=== PATIENT | female | born 1990 | race Caucasian/White ===

== ENCOUNTER 2022-09-17 18:44 | Emergency (ER) | payer MEDICAID ==
[2022-09-17] MEDS ORDERED: Sodium Chloride 0.9% 1,000 ML IV ONE ×2 (19:17→20:24)
[2022-09-17 19:19] LABS: BILIRUBIN,URINE NEGATIVE (NEGATIVE); COLOR,URINE YELLOW; GLUCOSE,URINE NEGATIVE (NEGATIVE); KETONES,URINE NEGATIVE (NEGATIVE); LEUKOCYTE ESTERASE,URINE NEGATIVE (NEGATIVE); NITRITE,URINE POSITIVE (NEGATIVE); OCCULT BLOOD,URINE TRACE-INTACT (NEGATIVE); PROTEIN,URINE NEGATIVE (NEGATIVE); UROBILINOGEN,URINE 0.2 EU/dL (<2.0)
[2022-09-17 19:35] LABS: BASOPHILS PERCENT AUTO 0.5 % (0.0-1.5); EOSINOPHILS PERCENT AUTO 0.7 % (0.0-7.0); HEMATOCRIT 46.9 % (36.0-46.0); HEMOGLOBIN 16.7 g/dL (12.0-16.0); LYMPHOCYTES ABSOLUTE AUTO 1.2 K/uL (0.6-2.4); LYMPHOCYTES PERCENT AUTO 29.2 % (16.0-40.0); MEAN CORPUSCULAR HEMOGLOBIN 35.4 pg (27.0-32.0); MEAN CORPUSCULAR HGB CONC 35.6 g/dL (31.0-37.0); MEAN CORPUSCULAR VOLUME 99.4 fL (80.0-98.0); MONOCYTES ABSOLUTE AUTO 0.4 K/uL (0.0-0.8); MONOCYTES PERCENT AUTO 10.3 % (0.0-15.0); NEUTROPHILS ABSOLUTE AUTO 2.4 K/uL (1.4-5.7); NEUTROPHILS PERCENT AUTO 59.3 % (48.0-80.0); NRBC ABSOLUTE 0 K/uL; PLATELET COUNT,PLT 106 K/uL (150-400); RED BLOOD CELL COUNT 4.72 M/uL (4.30-5.90); WHITE BLOOD CELL COUNT,WBC 4.08 K/uL (4.0-11.0)
[2022-09-17 19:58] LABS: APPEARANCE,URINE HAZY
[2022-09-17 19:59] LABS: RBC,URINE 0-2 (0-2/HPF)
[2022-09-17 20:00] LABS: BACTERIA,URINE 2+ (NEGATIVE); EPITHELIAL CELLS,URINE FEW (NONE-FEW); MUCUS,URINE LIGHT (NONE-MOD); WBC,URINE 0-2 (0-5/HPF)
[2022-09-17] MEDS ORDERED: Ciprofloxacin 500 MG Tab PO ONE (20:05)
[2022-09-17 20:16] LABS: A/G RATIO 1.2 (0.9-1.6); ALBUMIN 4.3 g/dL (3.4-5.0); BILIRUBIN TOTAL 1.7 mg/dL (0.2-1.0); CALCIUM 9.5 mg/dL (8.5-10.1); CARBON DIOXIDE,CO2 25.1 mmol/L (21.0-32.0); CREATININE 0.5 mg/dL (0.6-1.0); EST CRCL DRUG DOSING (CG) 138.19 mL/min; POTASSIUM,K 3.1 mmol/L (3.5-5.1); PROTEIN TOTAL,TP 7.9 g/dL (6.4-8.2)
[2022-09-17 20:19] LABS: LACTIC ACID 2.2 mmol/L (0.4-2.0)
[2022-09-17] MEDS ORDERED: cefTRIAXone 1 GM in Sodium Chloride 0.9% 50 ML IV ONE (20:24)
[2022-09-17] MEDS ORDERED: Potassium Chloride 20 MEQ Tab.ER PO ONE (20:26)
== END 2022-09-17 22:45 | disposition home or self-care (01) ==
LOC: MW.ED 18:44
DX: E86.0 Dehydration (principal); N39.0 Urinary tract infection, site not specified; F10.10 Alcohol abuse, uncomplicated; R74.01 Elevation of levels of liver transaminase levels; Z88.0 Allergy status to penicillin; Z72.0 Tobacco use
CPT/HCPCS: 36415; 80053; 81001; 83605; 84443; 85025; 87086; 87088; 87186; 93005; 96361; 96365; 99285; A9270; J0696; J3490; J7030; 93010; 99284

== ENCOUNTER 2023-08-28 12:25 | Emergency (ER) | payer MEDICAID ==
[2023-08-28] MEDS: Sodium Chloride 0.9% 1,000 ML IV ONE (13:46)
[2023-08-28] MEDS: Ondansetron 4 MG/2 ML SDV IVPUSH ONE (13:46)
[2023-08-28] MEDS: Sodium Chloride 0.9% 10 ML Syringe FLUSH PRN (13:47)
[2023-08-28] MEDS: Sodium Chloride 0.9% 2.5 ML Syringe FLUSH PRN (13:48)
[2023-08-28 13:49] LABS: BASOPHILS ABSOLUTE AUTO 0.03 K/uL (0.00-0.20); BASOPHILS PERCENT AUTO 0.6 % (0.0-1.0); EOSINOPHILS ABSOLUTE AUTO 0.03 K/uL (0.00-0.45); EOSINOPHILS PERCENT AUTO 0.6 % (0.0-6.0); HEMATOCRIT 47.2 % (37.0-47.0); HEMOGLOBIN 17.6 g/dL (12.0-16.0); IMMATURE GRAN ABSOLUTE AUTO 0.03 K/uL (0.00-0.05); IMMATURE GRAN PERCENT AUTO 0.6 % (0.0-0.4); LYMPHOCYTES ABSOLUTE AUTO 1.01 K/uL (1.00-4.80); LYMPHOCYTES PERCENT AUTO 19.3 % (24.0-44.0); MEAN CORPUSCULAR HEMOGLOBIN 35.7 pg (28.0-32.0); MEAN CORPUSCULAR HGB CONC 37.3 g/dL (32.0-36.0); MEAN CORPUSCULAR VOLUME 95.7 fL (83.0-99.0); MEAN PLATELET VOLUME 10.5 fL (9.4-12.3); MONOCYTES ABSOLUTE AUTO 0.46 K/uL (0.00-0.80); MONOCYTES PERCENT AUTO 8.8 % (0.0-8.0); NEUTROPHILS ABSOLUTE AUTO 3.66 K/uL (1.80-7.70); NEUTROPHILS PERCENT AUTO 70.1 % (41.0-71.0); PLATELET COUNT,PLT 112 K/uL (150-400); RED BLOOD CELL COUNT 4.93 M/uL (4.10-5.30); WHITE BLOOD CELL COUNT,WBC 5.22 K/uL (3.9-11.3)
[2023-08-28 14:16] LABS: A/G RATIO 1.2 (0.9-1.6); ALBUMIN 4.6 g/dL (3.4-5.0); BILIRUBIN TOTAL 2.6 mg/dL (0.2-1.0); CALCIUM 9.6 mg/dL (8.5-10.1); CARBON DIOXIDE,CO2 21.2 mmol/L (21.0-32.0); CREATININE 0.7 mg/dL (0.6-1.0); EST CRCL DRUG DOSING (CG) 97.79 mL/min; POTASSIUM,K 3.1 mmol/L (3.5-5.1); PROTEIN TOTAL,TP 8.4 g/dL (6.4-8.2)
[2023-08-28] MEDS: Potassium Chloride 20 MEQ Tab.ER PO ONE (15:02)
[2023-08-28 15:08] LABS: APPEARANCE,URINE CLEAR; BILIRUBIN,URINE NEGATIVE (NEGATIVE); COLOR,URINE YELLOW; GLUCOSE,URINE NEGATIVE (NEGATIVE); KETONES,URINE 40 mg/dL (NEGATIVE); LEUKOCYTE ESTERASE,URINE NEGATIVE (NEGATIVE); NITRITE,URINE POSITIVE (NEGATIVE); OCCULT BLOOD,URINE SMALL (NEGATIVE); PROTEIN,URINE NEGATIVE (NEGATIVE); UROBILINOGEN,URINE 0.2 EU/dL (<2.0)
[2023-08-28 15:15] LABS: BACTERIA,URINE 3+ (NEGATIVE); EPITHELIAL CELLS,URINE OCCASIONAL (NONE-FEW); RBC,URINE 0-1 (0-2/HPF); WBC,URINE 0-3 (0-5/HPF)
== END 2023-08-28 16:07 | disposition home or self-care (01) ==
LOC: MW.ED 12:25
DX: N39.0 Urinary tract infection, site not specified (principal); R74.01 Elevation of levels of liver transaminase levels; Z88.0 Allergy status to penicillin; Z79.899 Other long term (current) drug therapy; Z75.8 Other problems related to medical facilities and other health care
CPT/HCPCS: 36415; 80053; 81001; 81003; 84703; 85025; 87086; 96361; 96374; 99284; A9270; J2405; J3490; J7030; 87088; 87186

== ENCOUNTER 2023-10-07 10:50 | Emergency (ER) | payer MEDICAID ==
[2023-10-07] MEDS: Ondansetron 4 MG/2 ML SDV IVPUSH ONE (11:16)
[2023-10-07] MEDS: Sodium Chloride 0.9% 2.5 ML Syringe FLUSH PRN (11:16)
[2023-10-07] MEDS: Sodium Chloride 0.9% 1,000 ML IV ONE (11:17)
[2023-10-07] MEDS: Sodium Chloride 0.9% 10 ML Syringe FLUSH PRN (11:17)
[2023-10-07 11:23] LABS: BASOPHILS ABSOLUTE AUTO 0.03 K/uL (0.00-0.20); BASOPHILS PERCENT AUTO 0.5 % (0.0-1.0); EOSINOPHILS ABSOLUTE AUTO 0.02 K/uL (0.00-0.45); EOSINOPHILS PERCENT AUTO 0.4 % (0.0-6.0); HEMATOCRIT 46.2 % (37.0-47.0); HEMOGLOBIN 16.7 g/dL (12.0-16.0); IMMATURE GRAN ABSOLUTE AUTO 0.03 K/uL (0.00-0.05); IMMATURE GRAN PERCENT AUTO 0.5 % (0.0-0.4); LYMPHOCYTES ABSOLUTE AUTO 1.05 K/uL (1.00-4.80); LYMPHOCYTES PERCENT AUTO 18.5 % (24.0-44.0); MEAN CORPUSCULAR HGB CONC 36.1 g/dL (32.0-36.0); MEAN CORPUSCULAR VOLUME 96.9 fL (83.0-99.0); MEAN PLATELET VOLUME 10.3 fL (9.4-12.3); MONOCYTES ABSOLUTE AUTO 0.74 K/uL (0.00-0.80); MONOCYTES PERCENT AUTO 13.1 % (0.0-8.0); PLATELET COUNT,PLT 188 K/uL (150-400); RED BLOOD CELL COUNT 4.77 M/uL (4.10-5.30); WHITE BLOOD CELL COUNT,WBC 5.67 K/uL (3.9-11.3)
[2023-10-07] MEDS: chlordiazePOXIDE 25 MG Cap PO ONE (11:51)
[2023-10-07 11:54] LABS: A/G RATIO 0.9 (0.9-1.6); ALBUMIN 3.5 g/dL (3.4-5.0); BILIRUBIN TOTAL 2.1 mg/dL (0.2-1.0); CALCIUM 8.5 mg/dL (8.5-10.1); CARBON DIOXIDE,CO2 25.2 mmol/L (21.0-32.0); CREATININE 0.6 mg/dL (0.6-1.0); EST CRCL DRUG DOSING (CG) 114.08 mL/min; POTASSIUM,K 3.3 mmol/L (3.5-5.1); PROTEIN TOTAL,TP 7.2 g/dL (6.4-8.2)
== END 2023-10-07 13:02 | disposition home or self-care (01) ==
LOC: MW.ED 10:50
DX: F10.139 Alcohol abuse with withdrawal, unspecified (principal); Z75.8 Other problems related to medical facilities and other health care; Z88.0 Allergy status to penicillin; Z79.899 Other long term (current) drug therapy
CPT/HCPCS: 36415; 80053; 85025; 96361; 96374; 99284; A9270; J2405; J3490; J7030

== ENCOUNTER 2023-12-22 05:31 | Emergency (ER) | payer MEDICAID ==
[2023-12-22] MEDS: chlordiazePOXIDE 25 MG Cap PO ONE (06:03)
== END 2023-12-22 06:14 | disposition home or self-care (01) ==
LOC: MW.ED 05:31
DX: F10.130 Alcohol abuse with withdrawal, uncomplicated (principal); F17.210 Nicotine dependence, cigarettes, uncomplicated; Z88.0 Allergy status to penicillin; Z75.8 Other problems related to medical facilities and other health care
CPT/HCPCS: 99284; A9270; 99283

== ENCOUNTER 2024-02-28 06:34 | Inpatient (IN) | payer MEDICAID ==
[2024-02-28 07:48] LABS: BASOPHILS ABSOLUTE AUTO 0.02 K/uL (0.00-0.20); BASOPHILS PERCENT AUTO 0.2 % (0.0-1.0); EOSINOPHILS ABSOLUTE AUTO 0.01 K/uL (0.00-0.45); EOSINOPHILS PERCENT AUTO 0.1 % (0.0-6.0); IMMATURE GRAN ABSOLUTE AUTO 0.06 K/uL (0.00-0.05); IMMATURE GRAN PERCENT AUTO 0.6 % (0.0-0.4); LYMPHOCYTES ABSOLUTE AUTO 1.03 K/uL (1.00-4.80); LYMPHOCYTES PERCENT AUTO 10.3 % (24.0-44.0); MEAN PLATELET VOLUME 10.6 fL (9.4-12.3); MONOCYTES ABSOLUTE AUTO 0.47 K/uL (0.00-0.80); MONOCYTES PERCENT AUTO 4.7 % (0.0-8.0); NEUTROPHILS ABSOLUTE AUTO 8.38 K/uL (1.80-7.70); NEUTROPHILS PERCENT AUTO 84.1 % (41.0-71.0); PLATELET COUNT,PLT 108 K/uL (150-400); WHITE BLOOD CELL COUNT,WBC 9.97 K/uL (3.9-11.3)
[2024-02-28 08:10] LABS: A/G RATIO 1.2 (0.9-1.6); ALBUMIN 4.1 g/dL (3.4-5.0); BILIRUBIN TOTAL 1.6 mg/dL (0.2-1.0); CALCIUM 7.7 mg/dL (8.5-10.1); CARBON DIOXIDE,CO2 14.2 mmol/L (21.0-32.0); CREATININE 0.6 mg/dL (0.6-1.0); EST CRCL DRUG DOSING (CG) 104.49 mL/min; POTASSIUM,K 2.5 mmol/L (3.5-5.1); PROTEIN TOTAL,TP 7.6 g/dL (6.4-8.2)
[2024-02-28 08:51] LABS: HEMATOCRIT 37.5 % (37.0-47.0)
[2024-02-28 08:53] LABS: MEAN CORPUSCULAR VOLUME 85.2 fL (83.0-99.0)
[2024-02-28 08:54] LABS: HEMOGLOBIN 13.5 g/dL (12.0-16.0)
[2024-02-28 08:55] LABS: MEAN CORPUSCULAR HEMOGLOBIN 30.7 pg (28.0-32.0)
[2024-02-28] MEDS: Sodium Chloride 0.9% 2.5 ML Syringe FLUSH PRN (08:55)
[2024-02-28] MEDS: Sodium Chloride 0.9% 10 ML Syringe FLUSH PRN (08:55)
[2024-02-28] MEDS: Sodium Chloride 0.9% 1,000 ML IV ONE (09:20)
[2024-02-28] MEDS: LORazepam 2 MG/ML SDV IVPUSH ONE (09:22)
[2024-02-28] MEDS: Thiamine 200 MG/2 ML MDV IVPUSH ONE (09:22)
[2024-02-28] MEDS: Potassium Chloride 20 MEQ Tab.ER PO ONE (09:23)
[2024-02-28 09:31] LABS: BASOPHILS ABSOLUTE AUTO 0.03 K/uL (0.00-0.20); BASOPHILS PERCENT AUTO 0.3 % (0.0-1.0); HEMATOCRIT 34.5 % (37.0-47.0); HEMOGLOBIN 12.9 g/dL (12.0-16.0); IMMATURE GRAN ABSOLUTE AUTO 0.08 K/uL (0.00-0.05); IMMATURE GRAN PERCENT AUTO 0.7 % (0.0-0.4); LYMPHOCYTES ABSOLUTE AUTO 1.18 K/uL (1.00-4.80); LYMPHOCYTES PERCENT AUTO 10.7 % (24.0-44.0); MEAN CORPUSCULAR HGB CONC 37.4 g/dL (32.0-36.0); MEAN CORPUSCULAR VOLUME 85.6 fL (83.0-99.0); MEAN PLATELET VOLUME 10.7 fL (9.4-12.3); MONOCYTES PERCENT AUTO 4.5 % (0.0-8.0); NEUTROPHILS ABSOLUTE AUTO 9.26 K/uL (1.80-7.70); NEUTROPHILS PERCENT AUTO 83.8 % (41.0-71.0); NRBC ABSOLUTE 0.02 K/uL (0.00-0.02); NRBC PERCENT 0.2 /100WBC (0.0-0.2); PLATELET COUNT,PLT 100 K/uL (150-400); RED BLOOD CELL COUNT 4.03 M/uL (4.10-5.30); WHITE BLOOD CELL COUNT,WBC 11.05 K/uL (3.9-11.3)
[2024-02-28 09:37] LABS: INR 0.98 (0.86-1.11); PTT,PARTIAL THROMBOPLSTIN TIME 27.1 SEC (23.9-30.7)
[2024-02-28 09:50] LABS: LACTIC ACID 2.9 mmol/L (0.4-2.0)
[2024-02-28] MEDS: PHENobarbitaL sodium 130 MG in Sodium Chloride 0.9% 100 ML IV ONE (09:54)
[2024-02-28 09:57] LABS: APPEARANCE,URINE CLEAR; COLOR,URINE YELLOW; GLUCOSE,URINE NEGATIVE (NEGATIVE); KETONES,URINE >=80 mg/dL (NEGATIVE); LEUKOCYTE ESTERASE,URINE NEGATIVE (NEGATIVE); NITRITE,URINE NEGATIVE (NEGATIVE); OCCULT BLOOD,URINE MODERATE (NEGATIVE); PROTEIN,URINE 100 mg/dL (NEGATIVE); UROBILINOGEN,URINE 0.2 EU/dL (<2.0)
[2024-02-28 09:59] LABS: A/G RATIO 1.1 (0.9-1.6); ALBUMIN 3.9 g/dL (3.4-5.0); CALCIUM 7.6 mg/dL (8.5-10.1); CARBON DIOXIDE,CO2 13.5 mmol/L (21.0-32.0); CREATININE 0.6 mg/dL (0.6-1.0); EST CRCL DRUG DOSING (CG) 104.49 mL/min; POTASSIUM,K 2.6 mmol/L (3.5-5.1); PROTEIN TOTAL,TP 7.4 g/dL (6.4-8.2); TSH ULTRASENSITIVE 0.48 uIU/mL (0.36-3.74)
[2024-02-28 10:02] LABS: BILIRUBIN,URINE SMALL (NEGATIVE)
[2024-02-28 10:06] LABS: POTASSIUM,URINE RANDOM 24.4 mmol/L
[2024-02-28 10:07] LABS: AMPHETAMINES SCREEN, URINE NEGATIVE (CUTOFF=500); BARBITURATE SCREEN,URINE NEGATIVE (CUTOFF=200); BENZODIAZEPINES SCREEN,URINE NEGATIVE (CUTOFF=150); BUPRENORPHINE SCREEN,URINE NEGATIVE (CUTOFF=10); METHADONE SCREEN, URINE NEGATIVE (CUTOFF=200); METHAMPHETAMINES SCREEN, URINE NEGATIVE (CUTOFF=500); OXYCODONE SCREEN,URINE NEGATIVE (CUT0FF=100); PCP SCREEN,URINE NEGATIVE (CUTOFF=25); THC SCREEN,URINE 20 NG/ML NEGATIVE (CUTOFF=50)
[2024-02-28 10:08] LABS: BACTERIA,URINE FEW (NEGATIVE); EPITHELIAL CELLS,URINE FEW (NONE-FEW); FINE GRANULAR CASTS,URINE 0-2 (NEGATIVE); WBC,URINE 0-2 (0-5/HPF)
[2024-02-28] MEDS: Ondansetron 4 MG/2 ML SDV IVPUSH ONE (10:31)
[2024-02-28] MEDS ORDERED: PHENobarbitaL sodium 260 MG in Sodium Chloride 0.9% 100 ML IV PRN (10:47)
[2024-02-28] MEDS ORDERED: PHENobarbital 32.4 MG Tab PO PRN (10:47)
[2024-02-28] MEDS: NS with KCl 40mEq 1,000 ML IV SCH (11:17)
[2024-02-28] MEDS: Iopamidol 755 MG/ML 500 ML Multipack Bottle IVPUSH STA (12:08)
[2024-02-28 12:18] LABS: BASE EXCESS VENOUS -9.4 (-2.0-3.0); PH,VENOUS 7.38 (7.31-7.41)
[2024-02-28] MEDS ORDERED: Polyethylene Glycol 3350 Powder 17 GM Packet PO PRN (12:33)
[2024-02-28] MEDS ORDERED: Ondansetron 4 MG/2 ML SDV IVPUSH PRN (12:33)
[2024-02-28] MEDS ORDERED: Acetaminophen 325 MG Tab PO PRN (12:33)
[2024-02-28] MEDS ORDERED: Acetaminophen 650 MG Supp RECTAL PRN (12:33)
[2024-02-28 12:39] LABS: CALCIUM 6.8 mg/dL (8.5-10.1); CREATININE 0.6 mg/dL (0.6-1.0); EST CRCL DRUG DOSING (CG) 104.49 mL/min; MAGNESIUM 1.5 mg/dL (1.8-2.4); PHOSPHORUS 0.7 mg/dL (2.6-4.7); POTASSIUM,K 2.8 mmol/L (3.5-5.1)
[2024-02-28] MEDS ORDERED: Magnesium Sulfate/Water Premix 2 GM in Premix Bag 1 BAG IV ONE (12:52)
[2024-02-28 13:25] LABS: LACTIC ACID 1.7 mmol/L (0.4-2.0)
[2024-02-28] MEDS: cefTRIAXone 1 GM in Sodium Chloride 0.9% 50 ML IV SCH ×2 (13:27→16:31)
[2024-02-28] MEDS: Azithromycin 500 MG in Sodium Chloride 0.9% 250 ML IV SCH (13:30)
[2024-02-28] MEDS: Phosphorus #1 250 MG Tab PO SCH (13:58)
[2024-02-28] MEDS: PHENobarbital 32.4 MG Tab PO PRN (13:58)
[2024-02-28] MEDS ORDERED: Albuterol/Ipratropium 3.0-0.5 MG/3 ML Neb Soln NEB PRN (14:00)
[2024-02-28] MEDS: Potassium Phosphates 30 MMOLE, Magnesium Sulfate 2 GM in Sodium Chloride 0.9% 500 ML IV ONE (14:47)
[2024-02-28 17:07] LABS: CALCIUM 6.9 mg/dL (8.5-10.1); CARBON DIOXIDE,CO2 19.4 mmol/L (21.0-32.0); CREATININE 0.6 mg/dL (0.6-1.0); EST CRCL DRUG DOSING (CG) 104.49 mL/min; PHOSPHORUS 1.4 mg/dL (2.6-4.7); POTASSIUM,K 3.3 mmol/L (3.5-5.1)
[2024-02-28] MEDS: guaiFENesin 600 MG Tab.ER PO SCH (17:54)
[2024-02-28] MEDS: Dextrose 5% in Water 1,000 ML IV SCH ×2 (17:57→21:49)
[2024-02-28 19:01] LABS: CALCIUM 6.8 mg/dL (8.5-10.1); CARBON DIOXIDE,CO2 19.9 mmol/L (21.0-32.0); CREATININE 0.7 mg/dL (0.6-1.0); EST CRCL DRUG DOSING (CG) 89.56 mL/min; POTASSIUM,K 2.9 mmol/L (3.5-5.1)
[2024-02-28] MEDS: Melatonin 3 MG Tab PO PRN (20:08)
[2024-02-28 20:34] LABS: CARBON DIOXIDE,CO2 22.8 mmol/L (21.0-32.0); CREATININE 0.6 mg/dL (0.6-1.0); EST CRCL DRUG DOSING (CG) 104.49 mL/min; PHOSPHORUS 1.9 mg/dL (2.6-4.7); POTASSIUM,K 2.8 mmol/L (3.5-5.1)
[2024-02-28] MEDS: Potassium Chloride 10% 20 MEQ/15 ML Soln 15 ML UD Cup PO ONE (21:53)
[2024-02-28] MEDS: Potassium Phosphates 15 MMOLE in Sodium Chloride 0.9% 250 ML IV ONE (22:09)
[2024-02-29 01:21] LABS: CALCIUM 6.8 mg/dL (8.5-10.1); CARBON DIOXIDE,CO2 25.5 mmol/L (21.0-32.0); CREATININE 0.6 mg/dL (0.6-1.0); EST CRCL DRUG DOSING (CG) 104.49 mL/min; PHOSPHORUS 1.8 mg/dL (2.6-4.7); POTASSIUM,K 3.4 mmol/L (3.5-5.1)
[2024-02-29] MEDS ORDERED: Calcium Gluconate 10% 1 GM/10 ML SDV IV ONE (01:30)
[2024-02-29] MEDS: Dextrose 5% in Water 500 ML IV ONE (02:10)
[2024-02-29] MEDS: Potassium Phosphates 30 MMOLE in Sodium Chloride 0.9% 500 ML IV ONE ×3 (02:12→10:08)
[2024-02-29] MEDS: Calcium Gluc in NaCl, ISO-OSM 1,000 MG in Premix Bag 1 BAG IV SCH (02:38)
[2024-02-29 04:17] LABS: BASOPHILS ABSOLUTE AUTO 0.01 K/uL (0.00-0.20); BASOPHILS PERCENT AUTO 0.2 % (0.0-1.0); EOSINOPHILS ABSOLUTE AUTO 0.01 K/uL (0.00-0.45); EOSINOPHILS PERCENT AUTO 0.2 % (0.0-6.0); HEMATOCRIT 31.4 % (37.0-47.0); HEMOGLOBIN 11.6 g/dL (12.0-16.0); IMMATURE GRAN ABSOLUTE AUTO 0.02 K/uL (0.00-0.05); IMMATURE GRAN PERCENT AUTO 0.4 % (0.0-0.4); LYMPHOCYTES PERCENT AUTO 18.6 % (24.0-44.0); MEAN CORPUSCULAR HEMOGLOBIN 31.9 pg (28.0-32.0); MEAN CORPUSCULAR HGB CONC 36.9 g/dL (32.0-36.0); MEAN CORPUSCULAR VOLUME 86.3 fL (83.0-99.0); MEAN PLATELET VOLUME 10.7 fL (9.4-12.3); MONOCYTES ABSOLUTE AUTO 0.21 K/uL (0.00-0.80); MONOCYTES PERCENT AUTO 3.9 % (0.0-8.0); NEUTROPHILS ABSOLUTE AUTO 4.13 K/uL (1.80-7.70); NEUTROPHILS PERCENT AUTO 76.7 % (41.0-71.0); RED BLOOD CELL COUNT 3.64 M/uL (4.10-5.30); WHITE BLOOD CELL COUNT,WBC 5.38 K/uL (3.9-11.3)
[2024-02-29 04:37] LABS: ALBUMIN 2.8 g/dL (3.4-5.0); BILIRUBIN TOTAL 1.6 mg/dL (0.2-1.0); CALCIUM 7.5 mg/dL (8.5-10.1); CARBON DIOXIDE,CO2 25.7 mmol/L (21.0-32.0); CREATININE 0.5 mg/dL (0.6-1.0); EST CRCL DRUG DOSING (CG) 125.39 mL/min; MAGNESIUM 1.9 mg/dL (1.8-2.4); POTASSIUM,K 2.5 mmol/L (3.5-5.1); PROTEIN TOTAL,TP 5.5 g/dL (6.4-8.2)
[2024-02-29 04:40] LABS: PLATELET COUNT,PLT 70
[2024-02-29] MEDS: Potassium Chloride 10% 20 MEQ/15 ML Soln 15 ML UD Cup PO ONE (05:28)
[2024-02-29 08:41] LABS: CALCIUM 7.4 mg/dL (8.5-10.1); CREATININE 0.4 mg/dL (0.6-1.0); EST CRCL DRUG DOSING (CG) 156.74 mL/min; MAGNESIUM 1.8 mg/dL (1.8-2.4); POTASSIUM,K 2.9 mmol/L (3.5-5.1)
[2024-02-29] MEDS ORDERED: Calcium Gluconate 10% 1 GM/10 ML SDV IVPUSH ONE (09:03)
[2024-02-29] MEDS: Thiamine 200 MG/2 ML MDV IVPUSH SCH (10:01)
[2024-02-29] MEDS: Calcium Gluc in NaCl, ISO-OSM 1,000 MG in Premix Bag 1 BAG IV ONE (10:02)
[2024-02-29] MEDS: Folic Acid 1 MG/0.2 ML UD Syringe IV SCH (10:02)
[2024-02-29] MEDS: Loperamide 2 MG Cap PO ONE ×2 (11:10→18:49)
[2024-02-29 12:59] LABS: CALCIUM 8.2 mg/dL (8.5-10.1); CREATININE 0.6 mg/dL (0.6-1.0); EST CRCL DRUG DOSING (CG) 104.49 mL/min; PHOSPHORUS 2.9 mg/dL (2.6-4.7); POTASSIUM,K 3.3 mmol/L (3.5-5.1)
[2024-02-29 16:36] LABS: CALCIUM 8.2 mg/dL (8.5-10.1); CARBON DIOXIDE,CO2 28.6 mmol/L (21.0-32.0); CREATININE 0.5 mg/dL (0.6-1.0); EST CRCL DRUG DOSING (CG) 125.39 mL/min; PHOSPHORUS 2.3 mg/dL (2.6-4.7); POTASSIUM,K 3.1 mmol/L (3.5-5.1)
[2024-02-29] MEDS: Potassium Chloride 20 MEQ Tab.ER PO ONE ×2 (17:59→22:53)
[2024-02-29] MEDS: Dextrose 5% in Water 500 ML IV SCH (18:02)
[2024-02-29] MEDS: Atropine/Diphenoxylate 0.025-2.5 MG Tab PO PRN (20:03)
[2024-02-29] MEDS: PHENobarbital 32.4 MG Tab PO PRN (20:03)
[2024-02-29 20:28] LABS: CALCIUM 8.5 mg/dL (8.5-10.1); CARBON DIOXIDE,CO2 29.4 mmol/L (21.0-32.0); CREATININE 0.5 mg/dL (0.6-1.0); EST CRCL DRUG DOSING (CG) 125.39 mL/min
[2024-03-01] MEDS: Potassium Chloride 20 MEQ Tab.ER PO ONE (00:37)
[2024-03-01 01:29] LABS: CALCIUM 8.6 mg/dL (8.5-10.1); CARBON DIOXIDE,CO2 29.5 mmol/L (21.0-32.0); CREATININE 0.3 mg/dL (0.6-1.0); EST CRCL DRUG DOSING (CG) 208.98 mL/min; POTASSIUM,K 3.1 mmol/L (3.5-5.1)
[2024-03-01] MEDS: Potassium Chloride 10% 20 MEQ/15 ML Soln 15 ML UD Cup PO ONE (01:35)
[2024-03-01 04:09] LABS: BASOPHILS ABSOLUTE AUTO 0.02 K/uL (0.00-0.20); BASOPHILS PERCENT AUTO 0.6 % (0.0-1.0); EOSINOPHILS ABSOLUTE AUTO 0.04 K/uL (0.00-0.45); EOSINOPHILS PERCENT AUTO 1.2 % (0.0-6.0); HEMATOCRIT 32.7 % (37.0-47.0); HEMOGLOBIN 11.9 g/dL (12.0-16.0); IMMATURE GRAN ABSOLUTE AUTO 0.02 K/uL (0.00-0.05); IMMATURE GRAN PERCENT AUTO 0.6 % (0.0-0.4); LYMPHOCYTES ABSOLUTE AUTO 1.85 K/uL (1.00-4.80); LYMPHOCYTES PERCENT AUTO 55.9 % (24.0-44.0); MEAN CORPUSCULAR HEMOGLOBIN 31.7 pg (28.0-32.0); MEAN CORPUSCULAR HGB CONC 36.4 g/dL (32.0-36.0); MEAN CORPUSCULAR VOLUME 87.2 fL (83.0-99.0); MEAN PLATELET VOLUME 11.8 fL (9.4-12.3); MONOCYTES ABSOLUTE AUTO 0.22 K/uL (0.00-0.80); MONOCYTES PERCENT AUTO 6.6 % (0.0-8.0); NEUTROPHILS ABSOLUTE AUTO 1.16 K/uL (1.80-7.70); NEUTROPHILS PERCENT AUTO 35.1 % (41.0-71.0); PLATELET COUNT,PLT 61 K/uL (150-400); RED BLOOD CELL COUNT 3.75 M/uL (4.10-5.30); WHITE BLOOD CELL COUNT,WBC 3.31 K/uL (3.9-11.3)
[2024-03-01 04:30] LABS: PHOSPHORUS 2.4 mg/dL (2.6-4.7)
[2024-03-01 04:33] LABS: CALCIUM 8.4 mg/dL (8.5-10.1); CREATININE 0.5 mg/dL (0.6-1.0); EST CRCL DRUG DOSING (CG) 125.39 mL/min; POTASSIUM,K 3.8 mmol/L (3.5-5.1)
[2024-03-01 08:56] LABS: CALCIUM 8.6 mg/dL (8.5-10.1); CREATININE 0.5 mg/dL (0.6-1.0); EST CRCL DRUG DOSING (CG) 125.39 mL/min; POTASSIUM,K 3.6 mmol/L (3.5-5.1)
[2024-03-01] MEDS: buPROPion 150 MG Tab.ER PO SCH (12:52)
[2024-03-01 12:58] LABS: CALCIUM 9.1 mg/dL (8.5-10.1); CARBON DIOXIDE,CO2 26.7 mmol/L (21.0-32.0); CREATININE 0.4 mg/dL (0.6-1.0); EST CRCL DRUG DOSING (CG) 156.74 mL/min; PHOSPHORUS 2.5 mg/dL (2.6-4.7); POTASSIUM,K 3.7 mmol/L (3.5-5.1)
[2024-03-01] MEDS: buPROPion 150 MG Tab.ER PO ONE (13:52)
[2024-03-01] MEDS: QUEtiapine 25 MG Tab PO SCH (20:41)
[2024-03-02 08:14] LABS: BASOPHILS ABSOLUTE AUTO 0.02 K/uL (0.00-0.20); BASOPHILS PERCENT AUTO 0.5 % (0.0-1.0); EOSINOPHILS PERCENT AUTO 2.7 % (0.0-6.0); HEMATOCRIT 34.9 % (37.0-47.0); HEMOGLOBIN 12.6 g/dL (12.0-16.0); IMMATURE GRAN ABSOLUTE AUTO 0.04 K/uL (0.00-0.05); IMMATURE GRAN PERCENT AUTO 1.1 % (0.0-0.4); LYMPHOCYTES PERCENT AUTO 40.1 % (24.0-44.0); MEAN CORPUSCULAR HGB CONC 36.1 g/dL (32.0-36.0); MEAN CORPUSCULAR VOLUME 88.6 fL (83.0-99.0); MEAN PLATELET VOLUME 11.2 fL (9.4-12.3); MONOCYTES ABSOLUTE AUTO 0.33 K/uL (0.00-0.80); MONOCYTES PERCENT AUTO 8.8 % (0.0-8.0); NEUTROPHILS ABSOLUTE AUTO 1.75 K/uL (1.80-7.70); NEUTROPHILS PERCENT AUTO 46.8 % (41.0-71.0); PLATELET COUNT,PLT 88 K/uL (150-400); RED BLOOD CELL COUNT 3.94 M/uL (4.10-5.30); WHITE BLOOD CELL COUNT,WBC 3.74 K/uL (3.9-11.3)
[2024-03-02 08:36] LABS: ALBUMIN 3.2 g/dL (3.4-5.0); BILIRUBIN TOTAL 0.9 mg/dL (0.2-1.0); CARBON DIOXIDE,CO2 27.4 mmol/L (21.0-32.0); CREATININE 0.5 mg/dL (0.6-1.0); EST CRCL DRUG DOSING (CG) 125.39 mL/min; POTASSIUM,K 3.2 mmol/L (3.5-5.1); PROTEIN TOTAL,TP 6.4 g/dL (6.4-8.2)
[2024-03-02] MEDS: Potassium Chloride 20 MEQ Tab.ER PO ONE (09:42)
[2024-03-02] MEDS ORDERED: buPROPion 150 MG Tab.ER PO SCH (21:00)
== END 2024-03-02 12:40 | disposition home or self-care (01) | DRG 640 ==
LOC: MW.ED 06:34 → MW.ICU 10:55 → UNDOADMIN 10:55 → MW.ICU 12:31 → MW.MS 03-01 12:47
PROVIDERS: ADMIT Family Medicine; ATTEND Family Medicine
DX: F10.239 Alcohol dependence with withdrawal, unspecified (principal); E87.1 Hypo-osmolality and hyponatremia; J18.9 Pneumonia, unspecified organism; F10.139 Alcohol abuse with withdrawal, unspecified; N39.0 Urinary tract infection, site not specified; F10.129 Alcohol abuse with intoxication, unspecified; Z75.8 Other problems related to medical facilities and other health care; E87.6 Hypokalemia; F41.9 Anxiety disorder, unspecified; E87.29 Other acidosis; Z88.0 Allergy status to penicillin; Z79.899 Other long term (current) drug therapy
CPT/HCPCS: 36415 ×2; 51702; 71045; 74177; 80048 ×4; 80053 ×2; 80305; 80307; 81001; 82436; 82550; 82947 ×2; 83605; 83690; 83735 ×2; 83930; 83935; 84100 ×3; 84133; 84300; 84443; 84703; 85025 ×3; 85610; 85730; 87086; 93005; 96361; 96365; 96375; 99285; A9270 ×5; J0696; J2060; J2405; J2560; J3411 ×2; J3490 ×3; J7030; J7060 ×2; 82140; 82272; 82330; 82803; 87045; 87046; 87324; 87449; 87899; 93010; 94667; 94668; 99223; 99232; 99233; 99239; 99284; J0456; J0613; J2597; J3480; J7040; J7050; Q9967

== ENCOUNTER 2024-04-12 19:45 | Emergency (ER) | payer MEDICAID ==
[2024-04-12] MEDS: chlordiazePOXIDE 25 MG Cap PO ONE (23:57)
[2024-04-12] MEDS: Ondansetron 4 MG Tab PO ONE (23:57)
== END 2024-04-13 00:44 ==
LOC: MW.ED 19:45
DX: F10.239 Alcohol dependence with withdrawal, unspecified (principal); F17.210 Nicotine dependence, cigarettes, uncomplicated; Z88.0 Allergy status to penicillin; Z79.899 Other long term (current) drug therapy
CPT/HCPCS: 87428; 87651; 99285; A9270; 99282

== ENCOUNTER 2024-09-20 11:18 | Emergency (ER) | payer MEDICAID, OTHER | END 2024-09-20 12:30 | disposition home or self-care (01) | LOC: MW.ED 11:18 | DX: G47.00 Insomnia, unspecified (principal); Z75.3 Unavailability and inaccessibility of health-care facilities; Z88.0 Allergy status to penicillin | CPT/HCPCS: 82947; 99282; 99283 ==

== ENCOUNTER 2024-11-24 09:00 | Day surgery (SDC) | payer MEDICAID ==
[~2024-11-24 09:00] MED LIST: Albuterol 0.083% 2.5 MG/3 ML Neb Soln NEB PRN; Naloxone 0.4 MG/ML SDV IVPUSH PRN; Ondansetron 4 MG/2 ML SDV IVPUSH PRN; fentaNYL 50 MCG/ML SDV IVPUSH PRN
[2024-11-24] MEDS ORDERED: ceFAZolin 2 GM in Water For Injection, Sterile 20 ML IVPUSH ONE (09:07)
[2024-11-24] MEDS: Lactated Ringers 1,000 ML IV SCH (09:47)
[2024-11-24] MEDS ORDERED: Midazolam 1 MG/ML 2 ML SDV ONE (09:52)
[2024-11-24] MEDS ORDERED: Propofol 200 MG/20 ML SDV ONE (09:52)
[2024-11-24] MEDS ORDERED: fentaNYL 100 MCG/2 ML SDV ONE (09:52)
[2024-11-24] MEDS ORDERED: Scopalamine 1mg/3day Transdermal Patch TOP ONE (10:00)
[2024-11-24] MEDS ORDERED: Ondansetron 4 MG/2 ML SDV ONE (12:15)
[2024-11-24] MEDS ORDERED: Dexamethasone 4 MG/ML 5 ML MDV ONE (12:15)
== END 2024-11-24 13:55 | disposition home or self-care (01) ==
LOC: MW.SDS 09:00
PROVIDERS: ATTEND Surgery
DX: C50.912 Malignant neoplasm of unspecified site of left female breast (principal); F17.210 Nicotine dependence, cigarettes, uncomplicated; Z88.0 Allergy status to penicillin; Z79.899 Other long term (current) drug therapy
CPT/HCPCS: 00532; 71045; 71045-26; 76000; 76000-26; 81025; J0665; J0690; J1100; J1642; J2003; J2250; J2405; J2704; J3010; J3490; J7120